=== PATIENT | male | born 1975 | race Caucasian/White ===

== ENCOUNTER 2022-10-26 04:06 | Emergency (ER) | payer OTHER, SELFPAY ==
[2022-10-26 04:10] VITALS: BP 146/89; PULSE 65; RESP 18; TEMP 36.4; O2SAT 100; BMI 25.7
--- NOTE | 2022-10-26 04:25 | CTR_ITS ---
PROCEDURE INFORMATION: Exam: CT Abdomen And Pelvis Without Contrast Exam date and time: 10/26/2022 4:31 AM Age: 46 years old Clinical indication: Abdominal pain; Prior surgery; Surgery type: Appy; Patient HX: C/O left flank pain. ; Additional info: Kidney stone TECHNIQUE: Imaging protocol: Computed tomography of the abdomen and pelvis without contrast. Radiation optimization: All CT scans at this facility use at least one of these dose optimization techniques: automated exposure control; mA and/or kV adjustment per patient size (includes targeted exams where dose is matched to clinical indication); or iterative reconstruction. COMPARISON: No relevant prior studies available. RADIATION DOSE METRICS: Total DLP (mGy-cm): 589.13 FINDINGS: Lungs: The visualized portions of the lung bases are normal. Liver: The non-contrast enhanced liver appears unremarkable. Gallbladder and bile ducts: Gallbladder not distended, limiting assessment. No calcified stones. No biliary ductal dilatation. Pancreas: The non-contrast enhanced pancreas appears grossly unremarkable. No ductal dilation. Spleen: The non-contrast enhanced spleen appears unremarkable. No splenomegaly. Adrenal glands: Unremarkable non-contrast CT appearance of the adrenals. No definte masses. Kidneys and ureters: No contour deforming masses seen on the non-contrast CT. No calcifications. No hydronephrosis or ureterectasis. Stomach and bowel: The non-contrast opacified stomach is not well distended with relative gastric fold prominence. Assessment is limited. Suspected tiny hiatal hernia. The noncontrast opacified small bowel loops appear unremarkable. The noncontrast opacified colonic loops appear unremarkable. The lack of orally administered contrast material limits assessment. Appendix: Status post prior appendectomy. Intraperitoneal space: No abdominal ascites. No free air. Some benign phleboliths seen in the pelvis. Vasculature: No abdominal aortic aneurysm. Lymph nodes: No enlarged lymph nodes. Urinary bladder: The bladder is not well distended with relative wall prominence. Assessment is limited. Reproductive: Unremarkable as visualized. Bones/joints: No acute osseous abnormality seen. Severe degenerative disc disease changes with vacuum phenomenon are seen at the L5-S1 level. Soft tissues: Unremarkable. CT/CT kidney stone [id number] IMPRESSION: No acute abnormality seen on the non-contrast abdominal and pelvic CT. No renal, ureteral or bladder calculi. No hydronephrosis or ureterectasis.
--- NOTE | 2022-10-26 04:27 | ED_ITS ---
HPI - General Adult General: Chief complaint: General Medical Stated complaint: Possible Kidney Stone Source: patient Mode of arrival: ambulatory Limitations: no limitations History of Present Illness: 46-year-old male states he had some mild left flank pain for the last 3 days he states it was very mild and she states that since 7 PM last night it became severe he states it radiates into his groin denies any worsening with palpation had some nausea denies any vomiting denies dysuria denies any fevers. No history of kidney stones in the past. Associated symptoms: Deny chest pain, dyspnea, headache(s), nausea, rash or vomiting Review of Systems Const: Denies: fever(s), chills, body aches or change in appetite Eyes: Denies: blurry vision or eye discomfort ENMT: Denies: throat pain or dental pain Card: Denies: chest pain Resp: Denies: dyspnea GI: Denies: abdominal pain, nausea, vomiting or diarrhea : Reports: flank pain Musc: Denies: neck pain or back pain Skin/Breast: Denies: rash Neuro: Denies: headache(s) Psych: Denies: depression Daniel/Lymph: Denies: easy bruising All/Imm: Denies: urticaria PFSH ED PFSH: Medical History (Updated 10/26/22 @ 05:26 by Denisse Hawley MD) No pertinent past medical history Social History (Updated 10/26/22 @ 04:28 by Denisse Hawley MD) Substance/Drug Use: never Physical Exam Const: COMMON NORMALS: no acute distress, patient oriented x3 and healthy appearing HENMT: COMMON NORMALS: normocephalic and atraumatic HEAD & SCALP: normocephalic and atraumatic Eye: COMMON NORMALS: Equal, round and reactive pupils present and EOMs intact bilaterally PUPIL: Yes Equal, round and reactive pupils present Neck/C-Spine: COMMON NORMALS: full ROM and supple Chest: COMMONS NORMALS: normal inspection of the chest and normal palpation of entire chest wall Resp: COMMON NORMALS: normal respiratory effort, No retractions, No use of accessory muscles and clear to auscultation bilaterally AUSCULTATION: clear to auscultation bilaterally Cardio: COMMON NORMALS: regular rate, regular rhythm and No murmurs present (Cardio) RATE: regular rate RHYTHM: regular rhythm GI: COMMON NORMALS: Normal to inspection, nondistended, normoactive bowel sounds present, Soft to palpation, non-tender and no masses PALPATION: Yes Soft to palpation Extremity: COMMON NORMALS: normal to inspection and full ROM Neuro: COMMON NORMALS: patient oriented x3, moves all extremities and no focal motor deficits Psych: COMMON NORMALS: mental status grossly normal, Normal thought process present and cooperative THOUGHT PROCESS: Normal thought process present Skin: COMMON NORMALS: no rashes or lesions noted and no wounds GENERAL SKIN EXAM: no rashes or lesions noted Course Vital Signs: Vital signs: Vital Signs Temperature 97.6 F 10/26/22 04:10 Pulse Rate 65 10/26/22 04:10 Respiratory Rate 16 10/26/22 04:43 Blood Pressure 146/89 10/26/22 04:10 Pulse Oximetry 100 10/26/22 04:10 [facility] - General Adult Medical Decision Making Patient presents here with flank pain blood work CT is normal his pain is improved he has no testicle pain abdominal exam is benign he stable for discharge he is to follow-up with PCP and return if worsening. Lab Data 10/26/22 04:21 10/26/22 04:21 Radiology Impressions Abdomen/Pelvis CT 10/26/22 04:25 IMPRESSION: No acute abnormality seen on the non-contrast abdominal and pelvic CT. No renal, ureteral or bladder calculi. No hydronephrosis or ureterectasis. Laboratory Results WBC 7.5 10^3/uL (4.0-10.0) 10/26/22 04:21 RBC 5.35 10^6/uL (4.1-5.3) H 10/26/22 04:21 Hgb 16.3 g/dL (11.7-16.6) 10/26/22 04:21 Hct 47.8 % (42.0-52.0) 10/26/22 04:21 MCV 89.3 fl (80-94) 10/26/22 04:21 MCH 30.5 pg (28.0-34.0) 10/26/22 04:21 MCHC 34.1 g/dL (30.0-36.0) 10/26/22 04:21 RDW 12.3 % (12.1-15.1) 10/26/22 04:21 Plt Count 191 10^3/cmm (130-400) 10/26/22 04:21 MPV 9.7 fL (7.4-10.4) 10/26/22 04:21 Neut % (Auto) 45.0 % 10/26/22 04:21 Lymph % (Auto) 35.6 % 10/26/22 04:21 [place] % (Auto) 15.2 % 10/26/22 04:21 Eos % (Auto) 2.9 % 10/26/22 04:21 Baso % (Auto) 1.2 % 10/26/22 04:21 Neut # (Auto) 3.37 10^3/uL (1.8-7.7) 10/26/22 04:21 Lymph # (Auto) 2.7 10^3/uL (0.8-4.8) 10/26/22 04:21 [place] # (Auto) 1.1 10^3/uL (0.2-0.9) H 10/26/22 04:21 Eos # (Auto) 0.2 10^3/uL (0.0-0.8) 10/26/22 04:21 Baso # (Auto) 0.1 10^3/uL (0.0-0.1) 10/26/22 04:21 Nucleated RBC % (auto) 0 % 10/26/22 04:21 Nucleated RBCs # 0.0 /100WBC 10/26/22 04:21 Sodium 139 mmol/L (136-145) 10/26/22 04:21 Potassium 3.8 mmol/L (3.5-5.1) 10/26/22 04:21 Chloride 103 mmol/L (98-107) 10/26/22 04:21 Carbon Dioxide 28 mmol/L (22-29) 10/26/22 04:21 Anion Gap 11.8 (5-19) 10/26/22 04:21 BUN 14 mg/dL (6-20) 10/26/22 04:21 Creatinine 1.0 mg/dL (0.7-1.2) 10/26/22 04:21 GFR Calculation 80.8 mL/min (90-130) L 10/26/22 04:21 Glucose 82 mg/dL (65-115) 10/26/22 04:21 Calculated Osmolality 288 mOsm/kg (285-295) 10/26/22 04:21 Calcium 9.1 mg/dL (8.5-10.5) 10/26/22 04:21 Total Bilirubin 0.3 mg/dL (0.15-1.2) 10/26/22 04:21 AST 42 U/L (0-40) H 10/26/22 04:21 ALT 104 U/L (0-41) H 10/26/22 04:21 Alkaline Phosphatase 77 U/L (40-130) 10/26/22 04:21 Total Protein 7.1 g/dL (6.6-8.7) 10/26/22 04:21 Albumin 4.3 g/dL (3.5-5.2) 10/26/22 04:21 Globulin 2.8 g/dL (1.3-4.6) 10/26/22 04:21 Urine Color Colorless (Yellow) 10/26/22 04:21 Urine Appearance Clear (CLEAR) 10/26/22 04:21 Urine pH 6 (5-7) 10/26/22 04:21 Ur Specific [place] 1.010 (1.005-1.030) 10/26/22 04:21 Urine Protein Neg (Negative) 10/26/22 04:21 Urine Glucose (UA) Norm (Normal) 10/26/22 04:21 Urine Ketones Negative (Negative) 10/26/22 04:21 Urine Blood Neg (Negative) 10/26/22 04:21 Urine Nitrate Negative (Negative) 10/26/22 04:21 Urine Bilirubin Neg (Negative) 10/26/22 04:21 Urine Urobilinogen Norm mg/dL (Negative) 10/26/22 04:21 Ur Leukocyte Esterase Negative (Negative) 10/26/22 04:21 Urine RBC Rare /hpf (0-2) 10/26/22 04:21 Urine WBC None /hpf (0-5) 10/26/22 04:21 Ur Squamous Epith Cells None /hpf (0-5) 10/26/22 04:21 Amorphous Sediment Not Reportable 10/26/22 04:21 Urine Bacteria None /hpf (NONE) 10/26/22 04:21 Discharge Plan Discharge Patient Disposition: Home Clinical Impression: Flank pain Prescriptions: New hydrocodone-acetaminophen 5-325 mg tablet 1 tab PO Q6H PRN (Reason: pain) Qty: 14 0RF ondansetron 4 mg tablet,disintegrating 4 mg PO Q6H PRN (Reason: nausea and vomiting) Qty: 14 0RF Discharge Orders: Discharge ED (Routine); Ordered 10/26/22 Ordered By: Denisse Hawley Discharge Diet: Advance as tolerated Discharge Activity: Resume usual activity Patient Instructions: Kidney Stones (ED), Opioid Safety Coding Level of Care Code ED Box Sealing Machine Feeder for Abig Fwd Exam Comprehensive
[2022-10-26 04:28] LABS: Basophils # 0.1 10^3/uL (0.0-0.1); Basophils % 1.2 %; Eosinophils # 0.2 10^3/uL (0.0-0.8); Eosinophils % 2.9 %; Hematocrit 47.8 % (42.0-52.0); Hemoglobin 16.3 g/dL (11.7-16.6); Lymphocytes # 2.7 10^3/uL (0.8-4.8); Lymphocytes % 35.6 %; Mean Corpuscular HGB Conc 34.1 g/dL (30.0-36.0); Mean Corpuscular Hemoglobin 30.5 pg (28.0-34.0); Mean Corpuscular Volume 89.3 fl (80-94); Mean Platelet Volume 9.7 fL (7.4-10.4); Monocytes # 1.1 10^3/uL (0.2-0.9); Monocytes % 15.2 %; Neutrophils # 3.37 10^3/uL (1.8-7.7); Nucleated Red Blood Cells % 0 %; Platelet Count 191 10^3/cmm (130-400); Red Blood Count 5.35 10^6/uL (4.1-5.3); Red Cell Distribution Width 12.3 % (12.1-15.1); White Blood Count 7.5 10^3/uL (4.0-10.0)
[2022-10-26 04:30] LABS: Add Urine Microscopic? NO
[2022-10-26 04:39] LABS: Bilirubin Urine Neg (Negative); Blood Urine Neg (Negative); Glucose Urine UA Norm (Normal); Ketones Urine Negative (Negative); Leukocyte Esterase Urine Negative (Negative); Nitrate Urine Negative (Negative); Protein Urine Neg (Negative); Urine Appearance Clear (CLEAR); Urine Color Colorless (Yellow); Urobilinogen Urine Norm (Negative); pH Urine 6 (5-7)
[2022-10-26 04:42] LABS: Add Urine Culture? No
[2022-10-26 04:43] VITALS: RESP 16
[2022-10-26 04:43] LABS: RBC Urine RARE /hpf (0-2)
[2022-10-26] MEDS: HYDROmorphone 1 mg/mL INJ 1 mL IVP (04:43)
[2022-10-26] MEDS: ondansetron 2 mg/ML SDV 2 mL 4 MG IVP (04:43)
[2022-10-26 04:53] LABS: Alanine Aminotransferase 104 U/L (0-41); Albumin Level 4.3 g/dL (3.5-5.2); Alkaline Phosphatase 77 U/L (40-130); Anion Gap 11.8 (5-19); Aspartate Amino Transferase 42 U/L (0-40); Blood Urea Nitrogen 14 mg/dL (6-20); Calcium 9.1 mg/dL (8.5-10.5); Carbon Dioxide 28 mmol/L (22-29); Chloride 103 mmol/L (98-107); Globulin 2.8 g/dL (1.3-4.6); Glomerular Filtration Rate 80.8 mL/min (90-130); Glucose 82 mg/dL (65-115); Osmolality Calculated 288 mOsm/kg (285-295); Potassium 3.8 mmol/L (3.5-5.1); Sodium 139 mmol/L (136-145); Total Bilirubin 0.3 mg/dL (0.15-1.2); Total Protein 7.1 g/dL (6.6-8.7)
[2022-10-26 05:44] VITALS: BP 120/91; PULSE 76; RESP 19; O2SAT 97
--- NOTE | 2022-10-26 08:55 | DCPLANNER ---
Addendum entered by Katie Cantrell 10/28/22 10:18: abstract manager had message to disregard this referral Original Note: Case manger had message to schedule a follow up appointment for patient with urology. abstract manager sent patients information to the front office staff at urology. Patients information will be printed and reviewed. Clinic will call patient with appointment information.
== END 2022-10-26 05:44 | disposition home or self-care (01) ==
PROVIDERS: Emergency Provider Emergency Medicine
DX: R10.9 Unspecified abdominal pain (principal)
CPT/HCPCS: 74176; 80053; 81001; 85025; 96374; 96375; 99285; J1170; J2405